=== PATIENT | male | born 1965 | race African-American/Black ===

== ENCOUNTER → 2017-04-30 | Outpatient (REF) | payer OTHER | LOC: M LAB REF 09:36 | PROVIDERS: ATTEND Surgery | DX: Z01.89 Encounter for other specified special examinations (principal) ==

== ENCOUNTER → 2017-08-27 | Outpatient (CLI) | payer OTHER ==
--- NOTE | 2017-08-27 11:17 | REP ---
LEFT WRIST SERIES: Four views of the left wrist are performed. There is no evidence of acute fracture or dislocation. There is evidence of an old ununited scaphoid fracture. Gap between the osseous fragments is 2 mm with sclerotic density along the fracture site. There is mild radiocarpal joint space narrowing with subchondral sclerosis and spurring. There is mild diffuse intercarpal joint space narrowing and subchondral sclerosis, particularly in the lateral carpal region. 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 Sclerotic density along the fracture site with 2 mm gap between the fracture fragments. There are also mild degenerative changes in the lateral carpal region. Signed by Victoriano Hagan MD 08/27/2017 12:44 P
== END ==
LOC: M RAD 09:12
PROVIDERS: ATTEND Surgery
DX: M19.032 Primary osteoarthritis, left wrist (principal)

== ENCOUNTER → 2017-10-02 | Outpatient (CLI) | payer OTHER ==
--- NOTE | 2017-10-02 11:23 | REP ---
Chest x-ray: Two views. History: Positive PPD . Comparison study: No comparison chest x-ray . Findings: The lungs are well inflated and free of infiltrate. The pleural angles are sharp. The heart size is normal. Pulmonary vasculature is not increased. No significant bony abnormality is seen. Impression: Negative chest x-ray. Signed by Arash Headley MD 10/02/2017 11:15 A
== END ==
LOC: M RAD 09:16
PROVIDERS: ATTEND Surgery
DX: R76.11 Nonspecific reaction to tuberculin skin test without active tuberculosis (principal)